=== PATIENT | male | born 1940 | race Caucasian/White ===

== ENCOUNTER 2020-01-02 19:33 | Emergency (ER) | payer BC ==
[~2020-01-02] VITALS: Ht 182.9 cm; Wt 88.5 kg
[2020-01-02 19:54] VITALS: Ht 182.9 cm; Wt 88.5 kg
[2020-01-02 20:20] LABS: BASOPHIL % 0.3 % (0-2); PLATELET COUNT 170 x10^3mcL (130-400); RED CELL DISTRIBUTION WIDTH 12.5 % (11.5-14.5)
[2020-01-02 20:32] LABS: CALCIUM 9.2 mg/dL (8.5-10.1); CARBON DIOXIDE 27.1 mmol/L (21-32); CHLORIDE SERUM 98 mmol/L (98-107); CREATININE SERUM 1.4 mg/dL (0.7-1.3); GLUCOSE SERUM 178 mg/dL (74-106); POTASSIUM SERUM 4.6 mmol/L (3.5-5.1); SODIUM SERUM 136 mmol/L (136-145)
[2020-01-02 20:36] LABS: ALBUMIN 3.7 g/dL (3.4-5.0); ALKALINE PHOSPHATASE 64 U/L (46-116); ALT/SGPT 28 U/L (16-63); AST/SGOT 17 U/L (15-37); BILIRUBIN TOTAL 1.3 mg/dL (0.20-1.00); TOTAL PROTEIN, SERUM 7.2 g/dL (6.4-8.2)
[2020-01-03 00:23] VITALS: BP 137/90
== END 2020-01-03 00:05 | disposition home or self-care (01) ==
LOC: ED 19:33 → EDSEX 19:33 → ED 01-03 00:05
PROVIDERS: Student in an Organized Health Care Education/Training Program
DX: K56.41 Fecal impaction (principal); R10.32 Left lower quadrant pain